=== PATIENT | female | born 1995 | race Caucasian/White ===

== ENCOUNTER 2017-12-07 15:34 | Emergency (ER) | payer MEDICAID, SELFPAY ==
[2017-12-07 15:56] VITALS: BP 119/55; PULSE 80; RESP 16; TEMP 36.6; O2SAT 99
--- NOTE | 2017-12-07 16:41 | ED.GENADUL_ITS ---
Discharge Plan Disposition Patient Disposition: HOME Condition: Good Discharge Details Chief Complaint: Sorethroat Clinical Impression: Acute pharyngitis Primary Care Provider: MIGUEL ANGELLOCAL ED Provider: Moreno Thompson Home Meds and New Rx's Prescriptions: No Action medroxyprogesterone 150 MG/ML suspension 1 ea IM DIRECTED RF: 0 Discharge Instructions Instructions: Pharyngitis (ED) Additional Instructions: She may continue to take [id number] cough and cold medication as needed for your symptoms. Feel free to return for any new or significant worsening of your condition otherwise follow-up with your primary care provider if not improving over the next week. Stand Alone Forms: Work Release Referrals: Primary Care Provider [Outside] (As needed for reassessment or if not improving in the next week) Discharge Data Discharge Date/Time-TO BE ENTERED AT DEPARTURE: 12/07/17 17:30 Medical Decision Making 21-year-old female presenting to the emergency department for chief complaint of sore throat. Patient reports that this began yesterday and she has had multiple contacts with coworkers who have had positive strep pharyngitis. She states that she has had nasal congestion, subjective fever and chills. Physical exam shows very mild erythema and hypertrophy of the tonsils with minimal exudates. RN initiated rapid strep testing which is negative. Patient encouraged to continue to use [id number] medications and to return for any emergent new or worsening symptoms otherwise follow-up with primary care as needed for reassessment or if not improving over the next week. Patient has no evidence of [place]'s angina, peritonsillar or retropharyngeal abscess, epiglottitis, or other emergent airway findings. After discussion of diagnosis and plan of care patient has no further needs, questions, or concerns and states clear understanding to return to the emergency department for any worsening symptoms. Lab Data Lab results reviewed: Yes I reviewed the patient's lab results. HPI General Date/Time Provider Initiated Documentation: 12/07/17 16:04 . Limitations to Documentation: no limitations . Information obtained by: patient and RN notes reviewed . History of Present Illness 21 year old F presents to the emergency department with the chief complaint of sore throat, described as moderate, with intensity rated at 7. Quality is described as aching, and is localized to the neck (sore throat). Patient started experiencing this day(s) (1) and it has been constant. No relieving factors improve symptom(s), No exacerbating factors reported . Patient did receive the following treatments prior to arrival, other (acetaminophen) Related Data Home Medications Medication Instructions Recorded Confirmed medroxyprogesterone 1 ea IM DIRECTED 06/03/15 12/07/17 Allergies Allergy/AdvReac Type Severity Reaction Status Date / Time Penicillins AdvReac Intermediate Swelling/Ed Unverified 12/07/17 18:13 indra General Stated Complaint: Sorethroat PHUONG: 4 Review of Systems Constitutional Reports chills, Reports fever(s) and Reports headache(s) ENT Reports headache(s), Reports nasal congestion, Reports post nasal drip and Reports sore throat Cardiovascular Denies chest pain Respiratory Denies cough and Denies pain with cough Gastrointestinal Reports nausea and Denies vomiting Musculoskeletal Reports myalgias Neurologic Reports headache(s) PFSH Social History Smoking/Tobacco Use Status: Never Exam Const General: cooperative, healthy appearing, comfortable, no acute distress and not ill appearing Nutritional Appearance: average body habitus Orientation: alert, awake and oriented x3 Limitations: mental status not altered [facility] Head: normal to inspection, normocephalic and atraumatic Ears: hearing grossly normal bilaterally, external ears normal and TM's normal bilaterally General nose exam: external nose normal Mouth: oral mucosae normal, lip normal and tongue normal Throat: abnormal tonsil bilaterally erythema (mild), exudates (mild) and hypertrophy 1+ Neck Neck: normal visual inspection, full ROM, no lymphadenopathy, no meningeal signs , trachea midline and supple Resp Effort & Inspection: normal respiratory effort and able to speak in complete sentences Auscultation: clear to auscultation bilaterally Cardio Rate: regular rate Rhythm: regular rhythm Heart Sounds: S1 normal and S2 normal Course Vital Signs Temperature 36.6 C 12/07/17 15:56 Pulse 80 12/07/17 15:56 Respiratory Rate 16 12/07/17 15:56 Blood Pressure 119/55 L 12/07/17 15:56 Pulse Oximetry 99 12/07/17 15:56 Temperature 36.6 C 12/07/17 15:56 Temperature Source Skin 12/07/17 15:56 Pulse 80 12/07/17 15:56 Respiratory Rate 16 12/07/17 15:56 Blood Pressure 119/55 L 12/07/17 15:56 Blood Pressure Position Sitting 12/07/17 15:56 Pulse Oximetry 99 12/07/17 15:56 Oxygen Delivery Method Room Air 12/07/17 15:56 Oxygen Flow Rate 0 12/07/17 15:56 Lab/Test Results Lab/Test Results: 12/07/17 16:00 Pharynx Streptococcus Screen (TISH) - Pending POC Strep Test-ELVIRA(Rapid) Start: 12/07/17 16: 01 Freq: Status: Active Protocol: Document 12/07/17 16:11 CT (Rec: 12/07/17 16:11 CT [id number]) Strep test-ELVIRA(Rapid)-POC POC-Strep test-ELVIRA (Rapid) Negative POC-Strep test-ELVIRA (Rapid) Negative
== END 2017-12-07 17:30 | disposition home or self-care (01) ==
PROVIDERS: Emergency Provider Nurse Practitioner Family
DX: J02.9 Acute pharyngitis, unspecified (principal)
CPT/HCPCS: 87880; 99282; 87081

== ENCOUNTER 2018-03-15 17:45 | Emergency (ER) | payer SELFPAY ==
[2018-03-15 17:59] VITALS: BP 130/96; PULSE 56; RESP 16; TEMP 36.6
--- NOTE | 2018-03-15 18:19 | DI.RAD_ITS ---
SYMPTOMS/DIAGNOSIS: COUGH FOR 2 WEEKS PA AND LATERAL CHEST: The cardiac and mediastinal contours have a normal appearance. The lungs are well inflated and clear. No infiltrate, effusion or pneumothorax is seen. IMPRESSION: Negative chest x-ray.
--- NOTE | 2018-03-15 19:20 | DI.VRAD_ITS ---
EXAM: XR Chest, 2 Views EXAM DATE/TIME: 03/15/2018 6:20 PM CLINICAL HISTORY: 22 years old, female; Signs and symptoms; Cough; Patient HX: Cough for 2 weeks; Per PT: Coughing up green phlegm TECHNIQUE: XR of the chest, 2 views. COMPARISON: No relevant prior studies available. FINDINGS: The lungs are hyperexpanded. No airspace consolidation, pleural effusion or pneumothorax. The cardiomediastinal silhouette is unremarkable. IMPRESSION: No acute findings. Dictated and Authenticated by: Tye Bolden MD. Ordering:PIPPA Barragan MD
--- NOTE | 2018-03-15 19:59 | W.ED.GENAD ---
Discharge Plan Disposition Patient Disposition: HOME Condition: Good Discharge Details Chief Complaint: RespSymp Clinical Impression: Cough Reason For Visit: brief SOB / pain in chest Primary Care Provider: Lo,Local ED Provider: Yung Harris Home Meds and New Rx's Prescriptions: New benzonatate [Tessalon Perles] 100 mg capsule 100 mg PO QID PRN (Reason: cough) Qty: 20 RF: 0 No Action medroxyprogesterone 150 MG/ML suspension 1 ea IM DIRECTED RF: 0 Discharge Instructions Instructions: Acute Cough (ED) Additional Instructions: Please take the medication as directed. Please take Tylenol or Motrin for any pain you may have. If you notice any worsening of your symptoms, or any new symptoms such as vomiting, diarrhea, fever, chills, shortness of breath, chest pain, numbness, weakness, or fainting , please return immediately to the emergency department for reevaluation. Please follow up with your primary care provider as soon as possible for reassessment and reevaluation. As always, it was a pleasure participating in your medical care today. Medical Decision Making This is a very pleasant 22-year-old female who presents for evaluation of a brief episode of chest pain after she had a prolonged coughing episode. She has had a mild cough for the last 2 weeks. It is been slightly improving. She has no associated fever or chills. She has no significant risk factors for pulmonary embolism. Physical exam demonstrates no lung sound abnormalities, reassuring vital signs with no evidence of hypoxemia or tachypnea. No signs of trauma on the chest. EKG shows no abnormalities, ST changes or signs of pericarditis. Chest x-ray shows no acute process. With a benign EKG, negative chest x-ray, reassuring physical exam and reassuring vital signs I feel that her symptoms are most likely from mild upper respiratory infection/bronchitis, and unlikely to be pneumonia with no clinical or radiographic evidence of it. I feel her mild pain may have been from a mild intercostal sprain during her coughing episode. After x-ray and EKG I did discuss further potential workup, and the patient states that she feels excellent would like to go home. Patient will be discharged home with close follow-up with her primary care provider. We discussed red flags for which to return. We will prescribe Tessalon Perles for improvement of her coughing. I have extensively reviewed the treatment plan and discharge instructions with the patient. I have addressed all patient concerns at this time. The patient was made aware of what symptoms to monitor for that would warrant a return to the emergency department. Discussed the plan with the patient, they demonstrate verbal understanding and agreement with our assessment and plan at this time. EKG 18: 27 Rate 59, intervals normal, sinus bradycardia, no ST elevations or depressions, no T wave inversions, no concerning Q waves, no epsilon or delta wave. No evidence of pericarditis. FINDINGS: The lungs are hyperexpanded. No airspace consolidation, pleural effusion or pneumothorax. The cardiomediastinal silhouette is unremarkable. IMPRESSION: No acute findings. Dictated and Authenticated by: Tye Bolden MD. Ordering:PIPPA Barragan MD HPI General Date/Time Provider Initiated Documentation: 03/15/18 18:13. HPI Narrative: This is a pleasant 22-year-old female with no significant past medical history who presents today for evaluation of acute brief chest pain. The patient states that over the last 2 weeks she has had a mild cough with occasional productive green sputum. This is been slightly improving over the last few days however tonight and that yesterday she had a few notable episodes of coughing, with associated very mild chest pain. She feels that it was in the center of her chest, and she had some very brief shortness of breath at that time. She was concerned that she may be having a heart attack at 22 years of age and came to the ER for further evaluation. Currently the patient's chest pain is completely resolved, she does not feel short of breath, she denies any significant pleuritic chest pain, hemoptysis, fever or chills. She denies any nausea, vomiting, or current diarrhea. She denies any pertinent family history of cardiac disease. She denies any IV or illicit drug use. She denies any history of tobacco use. Denies PE risk factors such as recent long car rides, immobilization, recent surgery, prior history of DVT or PE, family history of PE or DVT, morbid obesity, and smoking, hemoptysis, history of cancer. Related Data Home Medications Medication Instructions Recorded Confirmed medroxyprogesterone 1 ea IM DIRECTED 06/03/15 12/07/17 benzonatate [Tessalon Perles] 100 mg PO QID PRN #20 cap 03/15/18 Previous Rx's Medication Instructions Recorded benzonatate [Tessalon Perles] 100 mg PO QID PRN #20 cap 03/15/18 Allergies Allergy/AdvReac Type Severity Reaction Status Date / Time Penicillins AdvReac Intermediate Swelling/Ed Unverified 03/15/18 18:03 indra General Stated Complaint: RespSymp PHUONG: 3 Review of Systems Review of Systems All systems reviewed & are unremarkable except as noted in HPI and below PFSH Social History Smoking/Tobacco Use Status: Never Exam Narrative Exam Narrative: 1.Const: Well-nourished, Well-developed, appearing stated age 2.Eyes: PERRL, no conjunctival injection, and symmetrical lids. 3.ENT: Atraumatic external nose and ears. Moist MM. Neck: Symmetric, trachea midline, No thyromegaly. 4.CVS: +S1/S2, No murmurs or gallops. Peripheral pulses 2+ and equal in all extremities. Brisk capillary refill in all extremities. 5.RESP: Unlabored respiratory effort. Clear to auscultation bilaterally. No wheezes rales or rhonchi 6.GI: Soft, Nontender/Nondistended, No hepatosplenomegaly. No guarding or rebound. 7.MSK: Normocephalic/Atraumatic, Extremities w/o deformity or ttp No cyanosis or clubbing, Normal movement of all extremities 8.Skin: Warm, Dry. No rashes or lesions. 9.Neuro: blueprint engineer II-XII grossly intact. Sensation grossly intact, no focal neurologic deficits. 10.Psych: (AAO) x3. Appropriate mood and affect Course Vital Signs Temperature 36.6 C 03/15/18 17:59 Pulse 56 L 03/15/18 17:59 Respiratory Rate 16 03/15/18 17:59 Blood Pressure 130/96 H 03/15/18 17:59 Temperature 36.6 C 03/15/18 17:59 Temperature Source Temporal Artery Scan 03/15/18 17:59 Pulse 56 L 03/15/18 17:59 Respiratory Rate 16 03/15/18 17:59 Respiratory Effort 03/15/18 18:04 Blood Pressure 130/96 H 03/15/18 17:59 Blood Pressure Position Sitting 03/15/18 17:59 Oxygen Delivery Method Room Air 03/15/18 17:59 Oxygen Flow Rate 0 03/15/18 17:59 Pain Level 4 03/15/18 17:59
== END 2018-03-15 20:17 | disposition home or self-care (01) ==
PROVIDERS: Emergency Provider Student in an Organized Health Care Education/Training Program
DX: R05 Cough (principal); R07.89 Other chest pain; R00.1 Bradycardia, unspecified
CPT/HCPCS: 93005; 99284; 71046; 93010

== ENCOUNTER 2019-03-15 09:15 | Inpatient (IN) | payer BC, SELFPAY ==
[2019-03-15] VITALS (135 sets, daily range): BP systolic 99–139; BP diastolic 44–87; PULSE 48–94; RESP 9–26; TEMP 36.3–37.2; O2SAT 96–100
--- NOTE | 2019-03-15 09:50 | ED.GENADUL_ITS ---
Discharge Plan Disposition Patient Disposition: [facility] INPATIENT Condition: Stable Discharge Details Chief Complaint: Chest Pain Clinical Impression: Chest pain, Elevated troponin Primary Care Provider: Lee Moody ED Provider: Jose Israel Home Meds and New Rx's Prescriptions: No Action medroxyprogesterone 150 MG/ML suspension 1 ea IM DIRECTED RF: 0 Medical Decision Making 23-year-old female otherwise healthy, presents to the ER for left-sided chest pain. Reports the pain is sharp and worse today beginning at 4 AM however has been present for several days and associated with she describes as the flu over the past few weeks. EKG was obtained at 9:22 AM, reveals a sinus rhythm, no obvious STEMI however there does appear to be some mild ST depression specifica lly in leads II, 3, V5., this does appear to be new when compared to previous EKG on 03-15-18. Given her left-sided chest pain, subjective shortness of breath, being on control, will initiate cardiac work-up including a chest CTA, will not obtain d-dimer as high enough suspicion for potential PE. We did discuss this very well could be viral syndrome with pleurisy in nature however certainly cannot rule out more severe etiology. Patient appears well, nontoxic. She has no additional questions or concerns and is comfortable with this plan of work-up. Upon reevaluation at approximately 11:05 AM, we discussed that her troponin was elevated however the rest of her work-up thus far has been unremarkable. CTA is still pending. At this time she appears well, nontoxic and is stable. We discussed with an elevated troponin given her symptoms, certainly cannot rule out PE with heart strain versus given her viral syndrome over the past 3 weeks, myocarditis. CTA read by radiology as negative. Otherwise healthy 23-year-old female with recent viral syndrome, now with chest pain and elevated troponin with mild EKG changes. Most likely diagnosis would be that of myocarditis but certainly cannot rule out atypical ACS, endocarditis, etc. We will get out to [facility] cardiology team for transfer to higher level of care. Patient was given a full dose of aspirin. We also added on a tickborne disease panel I spoke with Dr. Macdonald, cardiology team at [facility], informed me that they were at capacity and that they are unable to accept at this time. Hefelt as though the patient could be safely managed here at our facility I discussed the case with our hospitalist and she initially felt that the patient did require a higher level of care. I then reached out to [facility], Dr. Ball, cardiology team, and they 2 are at capacity and cannot accept an urgent case for the next 24-48 hours. This was relayed again to our hospitalist team. Dr Ruffin is now requesting that we have a formal cardiology consultation at our facility to determine whether or not our cardiology team feels as though the patient can be safely kept here at our facility. A call was placed to cardiology. I spoke with Dr. Garcia who personally evaluated the patient here in the ER. Patient at this time obviously cannot be discharged home safely and without any tertiary facilities in the region able to accept the patient, it does make the most sense to keep the patient here, outpatient cardiac MRI and or subsequent transfer if indicated can be initiated. Case once again discussed with Dr. Ruffin who is agreeable to admit the patient here. I did add on ESR and CRP at the request of Dr. Garcia Lab Data Labs: Laboratory Tests Range/Units 03/15/19 03/15/19 03/15/19 09:50 09:50 09:50 WBC (4.4-10.8) k/cumm 4.97 RBC (4.00-5.20) m/cumm 4.34 Hgb (12.0-15.5) g/dL 13.6 Hct (36.0-46.0) % 39.5 MCV (80-95) fL 91.0 MCH (27.0-33.0) pg 31.3 MCHC (32.0-36.0) g/dL 34.4 RDW (11.7-14.6) % 13.2 Plt Count (130-400) x1000/uL 257 MPV (8.0-11.0) fL 10.8 Immature Gran % % 0.2 Neutrophils % 54.9 Lymphocytes % 29.6 Monocytes % 11.1 Eosinophils % 3.2 Basophils % 1.0 Absolute Neutrophils (1.2-6.7) k/cumm 2.73 Absolute Lymphocytes (1.2-3.4) k/cumm 1.47 Absolute Monocytes (0.11-0.7) k/cumm 0.55 Absolute Eosinophils (0.0-0.7) k/cumm 0.16 Absolute Basophils (0.0-0.2) k/cumm 0.05 PT (9.3-11.0) sec 11.3 H INR (0.9-1.1) 1.1 APTT (21.0-31.4) sec 25.1 Sodium (136-145) mmol/L 140 Potassium (3.5-5.1) mmol/L 3.8 Chloride (98-107) mmol/L 105 Carbon Dioxide (21.0-32.0) mmol/L 25.8 Anion Gap (3-11) mmol/L 9.2 BUN (7-18) mg/dL 13 Creatinine (0.55-1.02) mg/dL 0.93 Estimated GFR/1.73 m2 (mL/min/1.73m2) >= 60.00 Glucose (74-106) mg/dL 89 Calcium (8.5-10.1) mg/dL 9.1 Total Bilirubin (0.2-1.0) mg/dL 0.9 AST (15-37) U/L 20 ALT (14-59) U/L 24 Alkaline Phosphatase (46-116) U/L 60 Troponin I (<0.06) ng/Ml C-Reactive Protein (0.0-0.3) mg/dL NT-Pro-B Natriuret Pep (<300) pg/mL 59 Total Protein (6.4-8.2) g/dL 7.3 Albumin (3.4-5.0) g/dL 3.9 Range/Units 03/15/19 03/15/19 03/15/19 09:50 09:50 09:52 WBC (4.4-10.8) k/cumm RBC (4.00-5.20) m/cumm Hgb (12.0-15.5) g/dL Hct (36.0-46.0) % MCV (80-95) fL MCH (27.0-33.0) pg MCHC (32.0-36.0) g/dL RDW (11.7-14.6) % Plt Count (130-400) x1000/uL MPV (8.0-11.0) fL Immature Gran % % Neutrophils % Lymphocytes % Monocytes % Eosinophils % Basophils % Absolute Neutrophils (1.2-6.7) k/cumm Absolute Lymphocytes (1.2-3.4) k/cumm Absolute Monocytes (0.11-0.7) k/cumm Absolute Eosinophils (0.0-0.7) k/cumm Absolute Basophils (0.0-0.2) k/cumm PT (9.3-11.0) sec INR (0.9-1.1) APTT (21.0-31.4) sec Sodium (136-145) mmol/L Potassium (3.5-5.1) mmol/L Chloride (98-107) mmol/L Carbon Dioxide (21.0-32.0) mmol/L Anion Gap (3-11) mmol/L BUN (7-18) mg/dL Creatinine (0.55-1.02) mg/dL Estimated GFR/1.73 m2 (mL/min/1.73m2) Glucose (74-106) mg/dL Calcium (8.5-10.1) mg/dL Total Bilirubin (0.2-1.0) mg/dL AST (15-37) U/L ALT (14-59) U/L Alkaline Phosphatase (46-116) U/L Troponin I (<0.06) ng/Ml 0.18 H* Cancelled C-Reactive Protein (0.0-0.3) mg/dL 0.93 H NT-Pro-B Natriuret Pep (<300) pg/mL Total Protein (6.4-8.2) g/dL Albumin (3.4-5.0) g/dL Range/Units 03/15/19 03/15/19 10:02 12:57 WBC (4.4-10.8) k/cumm RBC (4.00-5.20) m/cumm Hgb (12.0-15.5) g/dL Hct (36.0-46.0) % MCV (80-95) fL MCH (27.0-33.0) pg MCHC (32.0-36.0) g/dL RDW (11.7-14.6) % Plt Count (130-400) x1000/uL MPV (8.0-11.0) fL Immature Gran % % Neutrophils % Lymphocytes % Monocytes % Eosinophils % Basophils % Absolute Neutrophils (1.2-6.7) k/cumm Absolute Lymphocytes (1.2-3.4) k/cumm Absolute Monocytes (0.11-0.7) k/cumm Absolute Eosinophils (0.0-0.7) k/cumm Absolute Basophils (0.0-0.2) k/cumm PT (9.3-11.0) sec INR (0.9-1.1) APTT (21.0-31.4) sec Sodium (136-145) mmol/L Potassium (3.5-5.1) mmol/L Chloride (98-107) mmol/L Carbon Dioxide (21.0-32.0) mmol/L Anion Gap (3-11) mmol/L BUN (7-18) mg/dL Creatinine (0.55-1.02) mg/dL Estimated GFR/1.73 m2 (mL/min/1.73m2) Glucose (74-106) mg/dL Calcium (8.5-10.1) mg/dL Total Bilirubin (0.2-1.0) mg/dL AST (15-37) U/L ALT (14-59) U/L Alkaline Phosphatase (46-116) U/L Troponin I (<0.06) ng/Ml Cancelled 0.14 H* C-Reactive Protein (0.0-0.3) mg/dL NT-Pro-B Natriuret Pep (<300) pg/mL Total Protein (6.4-8.2) g/dL Albumin (3.4-5.0) g/dL HPI General Date/Time Provider Initiated Documentation: 03/15/19 09:25 . Limitations to Documentation: no limitations . Information obtained by: patient . HPI Narrative: 23-year-old female who presents to the ER today with a primary complaint of chest pain. She reports sharp left-sided pain that radiates through her chest and into her back that lasts only for a matter of few seconds and woke her from sleep around 4:00 this morning. She has had 1 additional episode later today. Her pain is associated with shortness of breath. She reports that over roughly 4 weeks ago she fell, striking the right side of her chest on a grill causing discomfort but never had this evaluated and feels as though this is getting better. She reports roughly 3 weeks ago she had what she describes as the flu. She was exposed to multiple people with pneumonia. She reports a cough that was primarily dry, eventually had clear sputum. Leivasy chest discomfort with coughing, subjective fever, runny nose, mildly sore throat. Those symptoms for the most part resolved but not completely. She is on control, has taken it for the last 3 years. Also reports that she began vaping over the past 2-3 months. Denies any alcohol or drug use. No previous history of smoking or vaping up until the past few months. Denies recent travel, pain or swelling in her legs. Related Data Home Medications Medication Instructions Recorded Confirmed medroxyprogesterone 1 ea IM DIRECTED 06/03/15 03/15/19 Allergies Allergy/AdvReac Type Severity Reaction Status Date / Time Penicillins AdvReac Intermediate Swelling/Ed Unverified 03/15/19 09:31 indra General Stated Complaint: Chest Pain PHUONG: 3 Review of Systems Constitutional Constitutional: Reports fever(s) (A couple weeks ago with her cough, none now) Eyes Eyes: Reports other visual disturbances Comments: Reports that when she felt short of breath this morning she saw black dots throughout her entire visual field ENT Ears, Nose, Mouth, and Throat: Denies dizziness Cardiovascular Cardiovascular: Reports chest pain, Denies diaphoresis, Denies syncope, Denies rapid heart rate, Denies irregular heart rhythm and Denies leg edema Respiratory Respiratory: Reports cough, Denies hemoptysis, Reports pain with cough and Denies wheezing Gastrointestinal Gastrointestinal: Denies abdominal pain, Denies nausea and Denies vomiting Comments: Reports nausea and vomiting with her viral illness a couple of weeks ago, none now Genitourinary Genitourinary: Denies dysuria Neurologic Neurologic: Denies dizziness and Denies syncope Allergic/Immunologic Allergic/Immunologic: Denies wheezing [facility] Social History Smoking/Tobacco Use Status: Current-Occasional Tobacco Type: e-cigarettes Drug use: Never Substance use type: does not use Details: States she has been using the ryan e cigarrette in the last couple of months. Do you feel safe at home: Yes Do you feel safe in your relationship?: Yes Exam Const General: cooperative, healthy appearing, comfortable and no acute distress [facility] Head: normal to inspection, normocephalic and atraumatic Mouth: moist mucous membranes Throat: posterior oropharynx normal Eyes General: appearance normal, both eyes and all related structures Conjunctivae: conjunctivae normal Sclera: sclerae normal Neck Neck: normal visual inspection, full ROM, no lymphadenopathy, no meningeal signs, trachea midline and supple Chest Chest: normal inspection of the chest and normal palpation of entire chest wall Resp Effort & Inspection: normal respiratory effort and able to speak in complete se ntences Auscultation: clear to auscultation bilaterally Cardio Rate: regular rate Rhythm: regular rhythm Pulses: radial pulses present and dorsalis pedis pulses present GI Inspection: normal to inspection Palpation: soft and nontender Back/Spine/Pelvis Thoracic/Lumbar Spine: thoracic and lumbar spine normal to inspection Skin General skin exam: no rashes or lesions noted Neuro General: alert, awake and oriented x3 Cognition: normal cognition Speech: speech normal Motor: muscle tone normal throughout Extrem General: normal to inspection, full ROM and normal capillary refill Psych Appearance: grossly normal Mental Status: mental status grossly normal Speech and Movement: speech and movement normal Course Vital Signs Vital signs: Vital Signs Temperature 36.3 C L 03/15/19 09:23 Pulse 69 03/15/19 09:23 Respiratory Rate 18 03/15/19 09:23 Blood Pressure 139/87 03/15/19 09:23 Pulse Oximetry 100 03/15/19 09:23 Temperature 36.3 C L 03/15/19 09:23 Temperature Source Skin 03/15/19 09:23 Pulse 69 03/15/19 09:23 Respiratory Rate 18 03/15/19 09:23 Respiratory Effort Non-Labored 03/15/19 09:29 Blood Pressure 139/87 03/15/19 09:23 Blood Pressure Position Sitting 03/15/19 09:23 Pulse Oximetry 100 03/15/19 09:23 Oxygen Delivery Method Room Air 03/15/19 09:23 Oxygen Flow Rate 0 03/15/19 09:23
[2019-03-15 10:20] LABS: Abs Immature Grans 0.01 k/cumm (0.0-0.09); Absolute Basophil Count 0.05 k/cumm (0.0-0.2); Absolute Eosinophil Count 0.16 k/cumm (0.0-0.7); Absolute Lymphocyte Count 1.47 k/cumm (1.2-3.4); Absolute Monocyte Count 0.55 k/cumm (0.11-0.7); Absolute Neutrophil Count 2.73 k/cumm (1.2-6.7); Eosinophils % 3.2; HCT 39.5 % (36.0-46.0); HGB 13.6 g/dL (12.0-15.5); Immature Grans % 0.2 %; Lymphocytes % 29.6; Mean Corp. HGB Concentration 34.4 g/dL (32.0-36.0); Mean Corpuscular Hemoglobin 31.3 pg (27.0-33.0); Mean Platelet Volume 10.8 fL (8.0-11.0); Monocytes % 11.1; Neutrophils % 54.9; Platelet Count 257 x1000/uL (130-400); RBC 4.34 m/cumm (4.00-5.20); RBC Distribution Width 13.2 % (11.7-14.6); White Blood Cell Count 4.97 k/cumm (4.4-10.8)
[2019-03-15 10:34] LABS: Troponin I 0.18 ng/Ml (<0.06)
[2019-03-15 10:41] LABS: INR 1.1 (0.9-1.1); PTT Activated 25.1 sec (21.0-31.4); Prothrombin Time 11.3 sec (9.3-11.0)
[2019-03-15 11:35] LABS: ALT 24 U/L (14-59); AST 20 U/L (15-37); Albumin 3.9 g/dL (3.4-5.0); Alkaline Phosphatase 60 U/L (46-116); Anion Gap 9.2 mmol/L (3-11); BUN 13 mg/dL (7-18); Bilirubin, Total 0.9 mg/dL (0.2-1.0); CO2 25.8 mmol/L (21.0-32.0); CREATININE 0.93 mg/dL (0.55-1.02); Calcium 9.1 mg/dL (8.5-10.1); Chloride 105 mmol/L (98-107); Glucose 89 mg/dL (74-106); NT-proBNP 59 pg/mL (<300); Potassium 3.8 mmol/L (3.5-5.1); Sodium 140 mmol/L (136-145); Total Protein 7.3 g/dL (6.4-8.2)
--- NOTE | 2019-03-15 11:57 | DI.CT_ITS ---
EXAM: CT CHEST PE CTA CLINICAL HISTORY: Left-sided chest pain, sob, control. TECHNIQUE: Imaging Protocol: Axial CT angiography was performed with multi-slice acquisition and mu lti-planar and/or 3D reconstructions. CONTRAST MATERIAL: Intravenous: Omnipaque 350 Contrast volume:84 mL COMPARISON: No exams were available for comparison FINDINGS: Pulmonary Arteries: No evidence of filling defect to suggest pulmonary emboli. Tracheobronchial tree: Patent where visualized. Mediastinum and Leigha: No dominant adenopathy or fluid collection. Pulmonary parenchyma: No consolidation or dominant measurable mass. No architectural distortion. Pleura: No effusion or pneumothorax. Heart: The heart is not dilated. No coronary artery calcifications are seen. Aorta: Thoracic aorta non-dilated. Upper abdomen: Unremarkable. Bones: Normal. IMPRESSION: No evidence of pulmonary embolism, thoracic aortic dissection or aneurysm. Findings were discussed with the emergency department on the date of the examination. DATA REPOSITORY: All CT scans at this facility are submitted to the National Radiology Data Registry (NRDR) Dose Index Registry (DIR) with the [employer] (ACR). RADIATION OPTIMIZATION: All CT scans at this facility use at least one of these dose optimization te chniques: automated exposure control; mA and/or kV adjustment per patient size (includes targeted exa ms where dose is matched to clinical indication); or iterative reconstruction.
[2019-03-15] MEDS: Omnipaque 350 MG/ML 100 ML BTL IJ (12:02)
[2019-03-15] MEDS: Aspirin 81 MG CHEW 324 MG CH (12:40)
[2019-03-15 13:37] LABS: Troponin I 0.14 ng/Ml (<0.06)
--- NOTE | 2019-03-15 14:53 | W.CARDCONSUL ---
Date of service: 03/15/19 Time of Service: 15:42 Assessment and Plan Assessment and plan (1) Chest pain: Status: Acute Assessment and plan: 1. Chest pain. Likely a viral myocarditis given the prodromal nature. She has an elevated troponin which has been stable on repeat. Her EKG is not suggestive of a focal ischemic event. My concern for SCAD or infartcion is low. She has been ruled out for a PE. Patient is hemodynamically stable and would thus require just supportive care at this point and monitoring for development of arrhythmia or heart failure. ?Admit for telemetry monitoring ?Echocardiogram when possible ?Recommend ESR and CRP. Viral serologies are often not helpful and thus would not recommend that. ?There is no indication for anti-inflammatory medication or anticoagulation ?The patient would likely benefit from a cardiac MRI at a tertiary care facility. Would recommend transfer when possible. ?In some cases an endomyocardial biopsy could be recommended (concern for giant cell myocarditis or lymphocytic myocarditis) but I do not think that she would benefit from this in her current state. ?Do not see an indication for a left heart cath at this point as her troponin is stable and we have a good explanation for why it is elevated. My concern for SCAD or infarction is quite low. Should she decompensate this should be reconsidered. ?The patient will need a remote monitor at discharge to monitor for arrhythmia ?The patient should refrain from heavy alcohol consumption and aggressive exercise until her inflammation has resolved. ?The patient should follow-up with me in clinic in the next month. History of Present Illness History of Present Illness Chief Complaint: chest pain Narrative: Ms. Rodriguez is a 23-year-old healthy female who presents to the emergency room with chest pain. She says she has had a viral infection for about 3 weeks that was quite severe. Over the last week she is developed intermittent chest pain that comes and goes but only lasts a few seconds. Last night she was awoken from her sleep with chest pain that lasted a few more minutes than she was used to. This change in symptoms is what brought her to the emergency room. She says she occasionally gets some shortness of breath when laying flat and has the pain on deep inspiration. Because of the viral and that she has been pretty much sedentary for the past few weeks. She denies radiation of the chest pain or chest pain that is unresolved. She does has occasional lightheadedness or dizziness when standing up from the seated position. She had not noted any swelling in her lower extremities but does think her feet have been a little bit more pale recently. Patient does not have any palpitations or feeling of her heart racing. To her knowledge she has never had any trouble with her heart in the past. Review of Systems All systems reviewed & are unremarkable except as noted in HPI and below PFSH Social History Smoking/Tobacco Use Status: Current-Occasional Tobacco Type: e-cigarettes Drug use: Never Substance use type: does not use Details: States she has been using the ryan e cigarrette in the last couple of months. Do you feel safe at home: Yes Do you feel safe in your relationship?: Yes Exam Const General: comfortable and no acute distress HENMT Head: normocephalic and atraumatic Eyes General: appearance normal, both eyes and all related structures Resp Effort & Inspection: normal respiratory effort Auscultation: clear to auscultation bilaterally Cardio Jugular venous pressure: no JVD Palpation: normal PMI Rate: regular rate Rhythm: regular rhythm Heart Sounds: S1 normal and S2 normal (No Murmurs, Rubs or Gallops) GI Palpation: soft Auscultation: normoactive bowel sounds Skin General skin exam: no rashes or lesions noted Extrem General: normal to inspection and no clubbing, cyanosis or edema Psych Appearance: grossly normal Results Last Vital Signs Temp 36.3 C L 03/15/19 09:23 Pulse 48 L 03/15/19 14:30 Resp 19 03/15/19 14:31 BP 107/64 03/15/19 14:30 Pulse Ox 98 03/15/19 14:31 Labs Result diagrams: 03/15/19 09:50 03/15/19 09:50 Labs: Laboratory Results - last 24 hr 03/15/19 03/15/19 03/15/19 09:50 09:50 09:50 WBC 4.97 RBC 4.34 Hgb 13.6 Hct 39.5 MCV 91.0 MCH 31.3 MCHC 34.4 RDW 13.2 Plt Count 257 MPV 10.8 Immature Gran % 0.2 Neutrophils % 54.9 Lymphocytes % 29.6 Monocytes % 11.1 Eosinophils % 3.2 Basophils % 1.0 Absolute Neutrophils 2.73 Absolute Lymphocytes 1.47 Absolute Monocytes 0.55 Absolute Eosinophils 0.16 Absolute Basophils 0.05 PT 11.3 H INR 1.1 APTT 25.1 Sodium 140 Potassium 3.8 Chloride 105 Carbon Dioxide 25.8 Anion Gap 9.2 BUN 13 Creatinine 0.93 Estimated GFR/1.73 m2 >= 60.00 Glucose 89 Calcium 9.1 Total Bilirubin 0.9 AST 20 ALT 24 Alkaline Phosphatase 60 Troponin I NT-Pro-B Natriuret Pep 59 Total Protein 7.3 Albumin 3.9 03/15/19 03/15/19 03/15/19 09:50 09:52 10:02 WBC RBC Hgb Hct MCV MCH MCHC RDW Plt Count MPV Immature Gran % Neutrophils % Lymphocytes % Monocytes % Eosinophils % Basophils % Absolute Neutrophils Absolute Lymphocytes Absolute Monocytes Absolute Eosinophils Absolute Basophils PT INR APTT Sodium Potassium Chloride Carbon Dioxide Anion Gap BUN Creatinine Estimated GFR/1.73 m2 Glucose Calcium Total Bilirubin AST ALT Alkaline Phosphatase Troponin I 0.18 H* Cancelled Cancelled NT-Pro-B Natriuret Pep Total Protein Albumin 03/15/19 12:57 WBC RBC Hgb Hct MCV MCH MCHC RDW Plt Count MPV Immature Gran % Neutrophils % Lymphocytes % Monocytes % Eosinophils % Basophils % Absolute Neutrophils Absolute Lymphocytes Absolute Monocytes Absolute Eosinophils Absolute Basophils PT INR APTT Sodium Potassium Chloride Carbon Dioxide Anion Gap BUN Creatinine Estimated GFR/1.73 m2 Glucose Calcium Total Bilirubin AST ALT Alkaline Phosphatase Troponin I 0.14 H* NT-Pro-B Natriuret Pep Total Protein Albumin
[2019-03-15 15:38] LABS: C-Reactive Protein 0.93 mg/dL (0.0-0.3)
[2019-03-15 16:24] LABS: ESR 8 mm/hr (0-20)
[2019-03-15 16:31] LABS: *AMPHETAMINES SCREEN URINE Negative (Negative); *BARBITURATES SCREEN URINE Negative (Negative); *BENZODIAZEPINES SCREEN URINE Negative (Negative); Cannabinoids THC Negative (Negative); Cocaine Screen,Urine Negative (Negative); METHADONE URINE SCREEN Negative (Negative); OPIATES URINE SCREEN Negative (Negative)
[2019-03-15 16:49] LABS: Tricyclic Antidepressants Negative (Negative)
--- NOTE | 2019-03-15 18:09 | W.PM.HP.N ---
Date of service: 03/15/19 Time of Service: 19:16 Assessment and Plan Assessment and plan (1) Chest pain: Status: Acute Assessment and plan: Thought to be due to viral myocarditis. At this time the patient is being monitored in the ICU with trending troponins. Obtain echo in am. Will re-attempt to transfer in am. Appreciate cardiology consult. (2) Elevated troponin: Status: Acute Assessment and plan: as above (3) DVT prophylaxis: Status: Acute Assessment and plan: Not required in a 23 year old ambulatory patient (4) Discharge planning issues: Status: Acute Assessment and plan: Full code Will re-attempt transfer in am. History of Present Illness History of Present Illness Chief Complaint: chest pain Narrative: Mr Rodriguez is a 23 year old female with no significant PMHx but who does vape who presented to [facility] today complaining of episodic L-sided sharp chest pain, lasting 5-10 seconds, which happens at rest, is accompanied by dizziness, darkened vision, and shortness of breath, with progressively increasing severity. Prior to the last couple of days, the chest pain had been mostly dull. The patient describes a 3-week long prodrome of an upper respiratory infection with a productive cough, for which she did not seek medical care due to lack of insurance. Today, however, she was so concerned about her chest pain, she did come in. Her troponin was found to be 0.18, it went down to 0.14, but now is back up at 0.16. Her EKG shows non-specific ST-T changes. She has ruled out for a PE by a negative CTA. Attempts were made to transfer the patient to [facility] and [facility], but no bed were available at either. Dr Garcia that, since the patient's troponins were stable, it would be ok to keep the patient here overnight until transfer became an option, recommended an echocardiogram in am, and checking inflammatory markers. Review of Systems Narrative: 12 systems reviewed. Pertinent positives and negatives as per HPI [facility] Medical History (Updated 03/15/19 @ 19:33 by Meryl Ruffin MD) No pertinent past medical history (Acute) Surgical History (Updated 03/15/19 @ 19:26 by Meryl Ruffin MD) No pertinent past surgical history (Acute) Family History (Updated 03/15/19 @ 19:28 by Meryl Ruffin MD) Maternal Grandfather Diabetes Other Cancer Social History (Updated 03/15/19 @ 19:29 by Meryl Ruffin MD) Smoking/Tobacco Use Status: Current-Occasional Tobacco Type: e-cigarettes Drug use: Never Substance use type: does not use Details: States she has been using the ryan e cigarrette in the last couple of months. Do you feel safe at home: Yes Do you feel safe in your relationship?: Yes Meds Home Medications and Allergies Home Medications Medication Instructions Recorded Confirmed Type medroxyprogesterone 1 ea IM DIRECTED 06/03/15 03/15/19 History Allergies Allergy/AdvReac Type Severity Reaction Status Date / Time Penicillins AdvReac Intermediate Swelling/Ed Unverified 03/15/19 09:31 indra Exam Narrative Exam Narrative: General: Extremely pleasant female, laying comfortably flat in bed, A&Ox3, not in dstress Neurological: A&Ox3, no focal deficits Psychiatric: appropriate speech pattern/content Skin: visible skin intact HEENT: Atraumatic, nomrocephalic, EOMI, MMM, clear oropharynx, no submandibular or cervical lymphadenopathy, no goiter or JVD Cardiovascular: RRR, split S2 Lungs: CTAB Gastrointestinal: soft, nontender, nondistended Genitourinary: deferred Extremities: no e/c/c BLE's Results Imaging Additional studies: CTA chest: No evidence of pulmonary embolism, thoracic aortic dissection or aneurysm. EKG: HR 78, NSR, no obvious acute ischemia Labs Result diagrams: 03/15/19 09:50 03/15/19 09:50 Labs: Laboratory Results - last 24 hr 03/15/19 03/15/19 03/15/19 09:50 09:50 09:50 WBC 4.97 RBC 4.34 Hgb 13.6 Hct 39.5 MCV 91.0 MCH 31.3 MCHC 34.4 RDW 13.2 Plt Count 257 MPV 10.8 Immature Gran % 0.2 Neutrophils % 54.9 Lymphocytes % 29.6 Monocytes % 11.1 Eosinophils % 3.2 Basophils % 1.0 Absolute Neutrophils 2.73 Absolute Lymphocytes 1.47 Absolute Monocytes 0.55 Absolute Eosinophils 0.16 Absolute Basophils 0.05 ESR PT 11.3 H INR 1.1 APTT 25.1 Sodium 140 Potassium 3.8 Chloride 105 Carbon Dioxide 25.8 Anion Gap 9.2 BUN 13 Creatinine 0.93 Estimated GFR/1.73 m2 >= 60.00 Glucose 89 Calcium 9.1 Total Bilirubin 0.9 AST 20 ALT 24 Alkaline Phosphatase 60 Troponin I C-Reactive Protein NT-Pro-B Natriuret Pep 59 Total Protein 7.3 Albumin 3.9 Urine Opiates Screen Urine Methadone Screen Ur Barbiturates Screen Ur Tricyclics Screen Ur Amphetamines Screen U Benzodiazepines Scrn Urine Cocaine Screen Ur THC Screen 03/15/19 03/15/19 03/15/19 09:50 09:50 09:52 WBC RBC Hgb Hct MCV MCH MCHC RDW Plt Count MPV Immature Gran % Neutrophils % Lymphocytes % Monocytes % Eosinophils % Basophils % Absolute Neutrophils Absolute Lymphocytes Absolute Monocytes Absolute Eosinophils Absolute Basophils ESR PT INR APTT Sodium Potassium Chloride Carbon Dioxide Anion Gap BUN Creatinine Estimated GFR/1.73 m2 Glucose Calcium Total Bilirubin AST ALT Alkaline Phosphatase Troponin I 0.18 H* Cancelled C-Reactive Protein 0.93 H NT-Pro-B Natriuret Pep Total Protein Albumin Urine Opiates Screen Urine Methadone Screen Ur Barbiturates Screen Ur Tricyclics Screen Ur Amphetamines Screen U Benzodiazepines Scrn Urine Cocaine Screen Ur THC Screen 03/15/19 03/15/19 03/15/19 10:02 12:57 15:25 WBC RBC Hgb Hct MCV MCH MCHC RDW Plt Count MPV Immature Gran % Neutrophils % Lymphocytes % Monocytes % Eosinophils % Basophils % Absolute Neutrophils Absolute Lymphocytes Absolute Monocytes Absolute Eosinophils Absolute Basophils ESR 8 PT INR APTT Sodium Potassium Chloride Carbon Dioxide Anion Gap BUN Creatinine Estimated GFR/1.73 m2 Glucose Calcium Total Bilirubin AST ALT Alkaline Phosphatase Troponin I Cancelled 0.14 H* C-Reactive Protein NT-Pro-B Natriuret Pep Total Protein Albumin Urine Opiates Screen Urine Methadone Screen Ur Barbiturates Screen Ur Tricyclics Screen Ur Amphetamines Screen U Benzodiazepines Scrn Urine Cocaine Screen Ur THC Screen 03/15/19 16:13 WBC RBC Hgb Hct MCV MCH MCHC RDW Plt Count MPV Immature Gran % Neutrophils % Lymphocytes % Monocytes % Eosinophils % Basophils % Absolute Neutrophils Absolute Lymphocytes Absolute Monocytes Absolute Eosinophils Absolute Basophils ESR PT INR APTT Sodium Potassium Chloride Carbon Dioxide Anion Gap BUN Creatinine Estimated GFR/1.73 m2 Glucose Calcium Total Bilirubin AST ALT Alkaline Phosphatase Troponin I C-Reactive Protein NT-Pro-B Natriuret Pep Total Protein Albumin Urine Opiates Screen Negative Urine Methadone Screen Negative Ur Barbiturates Screen Negative Ur Tricyclics Screen Negative Ur Amphetamines Screen Negative U Benzodiazepines Scrn Negative Urine Cocaine Screen Negative Ur THC Screen Negative Last Vital Signs Temp 36.3 C L 03/15/19 09:23 Pulse 58 L 03/15/19 16:45 Resp 21 03/15/19 16:45 BP 112/64 03/15/19 16:45 Pulse Ox 98 03/15/19 16:45
[2019-03-15 18:41] LABS: Troponin I 0.16 ng/Ml (<0.06)
[2019-03-16] VITALS (187 sets, daily range): BP systolic 98–125; BP diastolic 52–83; PULSE 41–96; RESP 12–25; TEMP 36.6–36.9; O2SAT 95–99
[2019-03-16 07:12] LABS: Abs Immature Grans 0.01 k/cumm (0.0-0.09); Absolute Basophil Count 0.03 k/cumm (0.0-0.2); Absolute Eosinophil Count 0.24 k/cumm (0.0-0.7); Absolute Lymphocyte Count 2.14 k/cumm (1.2-3.4); Absolute Monocyte Count 0.61 k/cumm (0.11-0.7); Absolute Neutrophil Count 2.41 k/cumm (1.2-6.7); Basophils % 0.6; Eosinophils % 4.4; HCT 36.8 % (36.0-46.0); HGB 12.4 g/dL (12.0-15.5); Immature Grans % 0.2 %; Lymphocytes % 39.3; Mean Corp. HGB Concentration 33.7 g/dL (32.0-36.0); Mean Corpuscular Hemoglobin 31.2 pg (27.0-33.0); Mean Corpuscular Volume 92.5 fL (80-95); Mean Platelet Volume 10.7 fL (8.0-11.0); Monocytes % 11.2; Neutrophils % 44.3; Platelet Count 240 x1000/uL (130-400); RBC 3.98 m/cumm (4.00-5.20); RBC Distribution Width 13.3 % (11.7-14.6); White Blood Cell Count 5.44 k/cumm (4.4-10.8)
[2019-03-16 07:30] LABS: Anion Gap 9.6 mmol/L (3-11); BUN 17 mg/dL (7-18); CO2 25.4 mmol/L (21.0-32.0); CREATININE 0.83 mg/dL (0.55-1.02); Calcium 8.8 mg/dL (8.5-10.1); Calculated LDL 57 mg/dL (<100); Chloride 104 mmol/L (98-107); Cholesterol 168 mg/dL (<200); Glucose 79 mg/dL (74-106); HDL Cholesterol 103 mg/dL (40-60); Magnesium 1.8 mg/dL (1.8-2.4); Potassium 3.8 mmol/L (3.5-5.1); Sodium 139 mmol/L (136-145); Triglyceride 42 mg/dL (<150)
[2019-03-16 07:40] LABS: Troponin I 0.16 ng/Ml (<0.06)
--- NOTE | 2019-03-16 08:48 | W.PM.PROGNOT ---
Subjective Subjective Interval history since last seen: Echo at 9. Overnight, HR 40's. No chest pain overnight, at 6 am - did have a dull pain. 08/18 headache. Accepting MD at [facility]: Dr Loomis. Objective Objective Clinical Data: Abnormal lab results 03/15/19 03/15/19 03/15/19 Range/Units 09:50 09:50 09:50 RBC (4.00-5.20) m/cumm PT 11.3 H (9.3-11.0) sec Troponin I 0.18 H* (<0.06) ng/Ml C-Reactive Protein 0.93 H (0.0-0.3) mg/dL 03/15/19 03/15/19 03/16/19 Range/Units 12:57 18:05 06:50 RBC (4.00-5.20) m/cumm PT (9.3-11.0) sec Troponin I 0.14 H* 0.16 H* 0.16 H* (<0.06) ng/Ml C-Reactive Protein (0.0-0.3) mg/dL 03/16/19 Range/Units 06:50 RBC 3.98 L (4.00-5.20) m/cumm PT (9.3-11.0) sec Troponin I (<0.06) ng/Ml C-Reactive Protein (0.0-0.3) mg/dL Vital Signs Temperature 37 C 03/15/19 23:30 Temperature Source Tympanic 03/15/19 23:30 Pulse 46 L 03/16/19 04:00 Pulse 42 L 03/16/19 05:00 Respiratory Rate 19 03/16/19 05:09 Respiratory Effort Non-Labored 03/16/19 02:23 Respiratory Depth Normal 03/16/19 02:23 Respiratory Pattern Normal 03/16/19 02:23 Blood Pressure 98/54 L 03/16/19 04:00 Blood Pressure Mean 64 03/16/19 04:00 Blood Pressure Position Supine 03/16/19 02:23 Pulse Oximetry 97 03/16/19 05:09 Oxygen Delivery Method Room Air 03/16/19 02:23 Oxygen Flow Rate 0 03/16/19 02:23 Pain Level 0 03/15/19 23:30 Intake & Output 03/15/19 03/15/19 03/16/19 11:59 23:59 11:59 Intake Total 787 / 787 Output Total 125 / 125 100 / 100 Balance 662 / 662 -100 / -100 Weight 56.699 kg 55.5 kg 56.2 kg Intake: Oral 787 / 787 Output: Urine 125 / 125 100 / 100 Other: Urine Color Pale Yellow Yellow Urine Appearance Clear Clear Urine Odor None None Comment voided in commode without difficulty Pt has not voided yet this shift. Voiding Methods Bedside Commode Urinal Laboratory Results WBC 5.44 k/cumm (4.4-10.8) 03/16/19 06:50 RBC 3.98 m/cumm (4.00-5.20) L 03/16/19 06:50 Hgb 12.4 g/dL (12.0-15.5) 03/16/19 06:50 Hct 36.8 % (36.0-46.0) 03/16/19 06:50 MCV 92.5 fL (80-95) 03/16/19 06:50 MCH 31.2 pg (27.0-33.0) 03/16/19 06:50 MCHC 33.7 g/dL (32.0-36.0) 03/16/19 06:50 RDW 13.3 % (11.7-14.6) 03/16/19 06:50 Plt Count 240 x1000/uL (130-400) 03/16/19 06:50 MPV 10.7 fL (8.0-11.0) 03/16/19 06:50 Immature Gran % 0.2 % 03/16/19 06:50 Neutrophils % 44.3 03/16/19 06:50 Lymphocytes % 39.3 03/16/19 06:50 Monocytes % 11.2 03/16/19 06:50 Eosinophils % 4.4 03/16/19 06:50 Basophils % 0.6 03/16/19 06:50 Absolute Neutrophils 2.41 k/cumm (1.2-6.7) 03/16/19 06:50 Absolute Lymphocytes 2.14 k/cumm (1.2-3.4) 03/16/19 06:50 Absolute Monocytes 0.61 k/cumm (0.11-0.7) 03/16/19 06:50 Absolute Eosinophils 0.24 k/cumm (0.0-0.7) 03/16/19 06:50 Absolute Basophils 0.03 k/cumm (0.0-0.2) 03/16/19 06:50 ESR 8 mm/hr (0-20) 03/15/19 15:25 PT 11.3 sec (9.3-11.0) H 03/15/19 09:50 INR 1.1 (0.9-1.1) 03/15/19 09:50 APTT 25.1 sec (21.0-31.4) 03/15/19 09:50 Sodium 139 mmol/L (136-145) 03/16/19 06:50 Potassium 3.8 mmol/L (3.5-5.1) 03/16/19 06:50 Chloride 104 mmol/L (98-107) 03/16/19 06:50 Carbon Dioxide 25.4 mmol/L (21.0-32.0) 03/16/19 06:50 Anion Gap 9.6 mmol/L (3-11) 03/16/19 06:50 BUN 17 mg/dL (7-18) 03/16/19 06:50 Creatinine 0.83 mg/dL (0.55-1.02) 03/16/19 06:50 Estimated GFR/1.73 m2 >= 60.00 (mL/min/1.73m2) 03/16/19 06:50 Glucose 79 mg/dL (74-106) 03/16/19 06:50 Calcium 8.8 mg/dL (8.5-10.1) 03/16/19 06:50 Magnesium 1.8 mg/dL (1.8-2.4) 03/16/19 06:50 Total Bilirubin 0.9 mg/dL (0.2-1.0) 03/15/19 09:50 AST 20 U/L (15-37) 03/15/19 09:50 ALT 24 U/L (14-59) 03/15/19 09:50 Alkaline Phosphatase 60 U/L (46-116) 03/15/19 09:50 Troponin I 0.16 ng/Ml (<0.06) H* 03/16/19 06:50 C-Reactive Protein 0.93 mg/dL (0.0-0.3) H 02/04/20 09:50 NT-Pro-B Natriuret Pep 59 pg/mL (<300) 03/15/19 09:50 Total Protein 7.3 g/dL (6.4-8.2) 03/15/19 09:50 Albumin 3.9 g/dL (3.4-5.0) 03/15/19 09:50 Triglycerides 42 mg/dL (<150) 03/16/19 06:50 Total Cholesterol 168 mg/dL (<200) 03/16/19 06:50 LDL Cholesterol, Calc 57 mg/dL (<100) 03/16/19 06:50 HDL Cholesterol 103 mg/dL (40-60) 03/16/19 06:50 Urine Opiates Screen Negative (Negative) 03/15/19 16:13 Urine Methadone Screen Negative (Negative) 03/15/19 16:13 Ur Barbiturates Screen Negative (Negative) 03/15/19 16:13 Ur Tricyclics Screen Negative (Negative) 03/15/19 16:13 Ur Amphetamines Screen Negative (Negative) 03/15/19 16:13 U Benzodiazepines Scrn Negative (Negative) 03/15/19 16:13 Urine Cocaine Screen Negative (Negative) 03/15/19 16:13 Ur THC Screen Negative (Negative) 03/15/19 16:13
--- NOTE | 2019-03-16 09:55 | PDOC.CMIN ---
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 CURRENT FUNCTIONAL STATUS:: Bonita is alert and engaged with CM. She states she worked with a lot of people that were ill over the past couple of weeks and feels that she picked up their illness. She came to the ER after concerns about chest pain. Bonita states she is worried that if she is not discharged today she will be unable to complete her class for graduate school. She is talked to her instructor and cannot make up this class. Anticipate she will be transferred to [facility] related to cardiac symptoms. ADVANCE DIRECTIVES:: None on file-CM offered to provide forms and assist with completion Has patient been provided with information about the portal?: Yes Did the patient sign up for the portal?: No CODE STATUS:: Full Code INSURANCE COVERAGE / FINANCIAL ISSUES:: [employer] CURRENT HOME/COMMUNITY SERVICES/EQUIPMENT:: None PRIMARY CARE PHYSICIAN:: Lee Moody POTENTIAL DISCHARGE NEEDS:: Patient to be transferred to [facility] PATIENT/FAMILY EDUCATION NEEDS:: Education related to disposition ANTICIPATED BARRIERS TO DISCHARGE:: Accepting facility bed availability TRANSPORTATION:: Via ambulance PLAN:: Patient be discharged to [facility] for higher level of care. CM to continue to provide support.
[2019-03-16 10:45] LABS: Lyme Ab w Rflx to Lyme Confirm Negative (Negative)
--- NOTE | 2019-03-16 12:11 | W.PM.DS.N ---
Date of service: 03/16/19 Time of Service: 12:11 DS: Diagnosis Discharge Diagnosis (1) Myocarditis: Status: Suspected (2) Chest pain: Status: Acute (3) Elevated troponin: Status: Acute (4) Current nicotine vaping on some days: Status: Acute Discharge Plan Disposition Patient Disposition: [facility] [employer] Condition: Stable Discharge Details Chief Complaint: Chest Pain Clinical Impression: Chest pain, Elevated troponin Reason For Visit: ELEVATED TROPONIN, SUSPECTED MYOCARDITIS Admit Date/Time: 03/15/19 15:42 Admit Provider: Meryl Ruffin Attending Provider: Meryl Ruffin Primary Care Provider: Lee Moody ED Provider: Jose Israel Hospital Course Hospital Course: Ms Rodriguez is a 23 year old female with no significant PMHx other than h/o vaping twice a day, who was admitted to [facility] ICU under the hospitalist service while awaiting a bed on [facility] cardiology service for suspected myocarditis on 03/15/2019. The patient reports episodic (5-10 second) sharp left-sided chest pain and a 3 week prodrome of an upper respiratory infection. The chest pain is accompanied by dizziness, sensation of darkened vision, and shortness of breath. Her troponin was elevated to 0.18 on presentation, decreasing to 0.14, then increasing again to 0.16, which is where it has remained. Her EKG does not show acute ischemic changes. She ruled out for a PE by CTA. Her ESR is wnl, her CRP is 0.93 (cut of for normal is 0.3). She has been afebrile. She was evaluated by Dr Garcia, who felt that the patient's symptoms and clinical picture are consistent with viral myocarditis. Her echocardiogram done today shows EF of 60-65%, normal LV size and wall thickness, preserved RV function, mild mitral and tricuspid regurgitation was seen. RSVP was 20.6 mmHg. The patient will require an inpatient cardiac MRI as well as a probably L cardiac cath, services unavailable at [facility]. She was accepted in transfer by Dr Loomis of [facility] cardiology, pending bed availability.The patient still has chest tightness and did have an episode of chest pain this morning. Her heart rates were in the 40s while asleep, in the 60's while awake. She is hemodynamically stable for transfer and agrees to transfer. Her one concern is missing an important lab in one of her classes that could preclude her getting in to the vet school where she was already pre-accepted, which are care managers are trying to address. Of note, the patient was advised to stop using vaping products, could benefit from outpatient PFT. There is low suspicion for her having EVALI at this time. Care for patient as well as completion of her transfer summary took 1 hour on the day of transfer. Home Meds and New Rx's Prescriptions: No Action medroxyprogesterone 150 MG/ML suspension 1 ea IM DIRECTED RF: 0 Discharge Instructions Additional Instructions: Stop using vaping products! Follow up with Dr Garcia within 1 month. Referrals: Bienvenido Garcia MD [MD CONSULTING PHYSICIAN] - Activity:: OOB to chair Diet:: heart healthy Discharge Orders Discharge Orders: Discharge Order (Routine); Ordered 03/16/19 Ordered By: Meryl Ruffin DS: Summary Status at Discharge Functional status at discharge: independent ambulation Overall status at discharge: patient is not back to baseline Mental Status: mental status grossly normal Speech and Movement: speech and movement normal Mood: congruent mood Affect: normal affect Exam Narrative Exam Narrative: General: Extremely pleasant female, tearful when talking about missing her lab (disseting a cat), A&Ox3 HEENT: EOMI, MMM Cardiovascular: RRR, split S2 Lungs: CTAB Gastrointestinal: soft, nontender, nondistended Extremities: no e/c/c BLE's Psych Mental Status: mental status grossly normal Speech and Movement: speech and movement normal Mood: congruent mood Affect: normal affect DS: Data Vitals/I&O Vitals and I&O: Vital Signs Temperature 36.9 C 03/16/19 09:15 Temperature Source Temporal Artery Scan 03/16/19 09:15 Pulse 50 L 03/16/19 08:00 Pulse 49 L 03/16/19 08:00 Respiratory Rate 14 03/16/19 09:15 Respiratory Effort Non-Labored 03/16/19 09:15 Respiratory Depth Normal 03/16/19 09:15 Respiratory Pattern Normal 03/16/19 09:15 Blood Pressure 106/65 03/16/19 08:00 Blood Pressure Mean 74 03/16/19 08:00 Blood Pressure Position Supine 03/16/19 09:15 Pulse Oximetry 99 03/16/19 09:15 Oxygen Delivery Method Room Air 03/16/19 09:15 Oxygen Flow Rate 0 03/16/19 09:15 Pain Level 7 03/16/19 09:15 Intake & Output 03/15/19 03/16/19 03/16/19 23:59 11:59 23:59 Intake Total 787 / 787 Output Total 125 / 125 100 / 100 Balance 662 / 662 -100 / -100 Weight 55.5 kg 56.2 kg Intake: Oral 787 / 787 Output: Urine 125 / 125 100 / 100 Other: Urine Color Pale Yellow Yellow Urine Appearance Clear Clear Urine Odor None None Comment voided in commode without difficulty Pt voided in under sink toilet; urine only; educated on commode use/hat for future voids. Voiding Methods Bedside Commode Toilet Data Completed and Pending Labs on day of discharge: Labs from last 24 hours 03/16/19 03/16/19 03/16/19 12:00 06:50 06:50 WBC 5.44 RBC 3.98 L Hgb 12.4 Hct 36.8 MCV 92.5 MCH 31.2 MCHC 33.7 RDW 13.3 Plt Count 240 MPV 10.7 Immature Gran % 0.2 Neutrophils % 44.3 Lymphocytes % 39.3 Monocytes % 11.2 Eosinophils % 4.4 Basophils % 0.6 Absolute Neutrophils 2.41 Absolute Lymphocytes 2.14 Absolute Monocytes 0.61 Absolute Eosinophils 0.24 Absolute Basophils 0.03 ESR Sodium 139 Potassium 3.8 Chloride 104 Carbon Dioxide 25.4 Anion Gap 9.6 BUN 17 Creatinine 0.83 Estimated GFR/1.73 m2 >= 60.00 Glucose 79 Calcium 8.8 Magnesium 1.8 Troponin I Pending 0.16 H* C-Reactive Protein Triglycerides 42 Total Cholesterol 168 LDL Cholesterol, Calc 57 HDL Cholesterol 103 Urine Opiates Screen Urine Methadone Screen Ur Barbiturates Screen Ur Tricyclics Screen Ur Amphetamines Screen U Benzodiazepines Scrn Urine Cocaine Screen Ur THC Screen A.phagocytophil DNA PCR B. divergens/MO-1 PCR Babesia duncani (PCR) Babesia microti DNA PCR Borrelia (PCR) Lyme Disease Antibody E.chaffeensis DNA (PCR) E.ewingii/canis DNA PCR E. muris-like DNA (PCR) 03/15/19 03/15/19 03/15/19 18:05 16:13 15:25 WBC RBC Hgb Hct MCV MCH MCHC RDW Plt Count MPV Immature Gran % Neutrophils % Lymphocytes % Monocytes % Eosinophils % Basophils % Absolute Neutrophils Absolute Lymphocytes Absolute Monocytes Absolute Eosinophils Absolute Basophils ESR 8 Sodium Potassium Chloride Carbon Dioxide Anion Gap BUN Creatinine Estimated GFR/1.73 m2 Glucose Calcium Magnesium Troponin I 0.16 H* C-Reactive Protein Triglycerides Total Cholesterol LDL Cholesterol, Calc HDL Cholesterol Urine Opiates Screen Negative Urine Methadone Screen Negative Ur Barbiturates Screen Negative Ur Tricyclics Screen Negative Ur Amphetamines Screen Negative U Benzodiazepines Scrn Negative Urine Cocaine Screen Negative Ur THC Screen Negative A.phagocytophil DNA PCR B. divergens/MO-1 PCR Babesia duncani (PCR) Babesia microti DNA PCR Borrelia (PCR) Lyme Disease Antibody E.chaffeensis DNA (PCR) E.ewingii/canis DNA PCR E. muris-like DNA (PCR) 03/15/19 03/15/19 03/15/19 12:57 09:50 09:30 WBC RBC Hgb Hct MCV MCH MCHC RDW Plt Count MPV Immature Gran % Neutrophils % Lymphocytes % Monocytes % Eosinophils % Basophils % Absolute Neutrophils Absolute Lymphocytes Absolute Monocytes Absolute Eosinophils Absolute Basophils ESR Sodium Potassium Chloride Carbon Dioxide Anion Gap BUN Creatinine Estimated GFR/1.73 m2 Glucose Calcium Magnesium Troponin I 0.14 H* C-Reactive Protein 0.93 H Triglycerides Total Cholesterol LDL Cholesterol, Calc HDL Cholesterol Urine Opiates Screen Urine Methadone Screen Ur Barbiturates Screen Ur Tricyclics Screen Ur Amphetamines Screen U Benzodiazepines Scrn Urine Cocaine Screen Ur THC Screen A.phagocytophil DNA PCR Pending B. divergens/MO-1 PCR Pending Babesia duncani (PCR) Pending Babesia microti DNA PCR Pending Borrelia (PCR) Pending Lyme Disease Antibody Pending E.chaffeensis DNA (PCR) Pending E.ewingii/canis DNA PCR Pending E. muris-like DNA (PCR) Pending Echo read: see above CTA chest: No evidence of pulmonary embolism, thoracic aortic dissection or aneurysm. [facility] Medical History (Updated 03/16/19 @ 12:12 by Meryl Ruffin MD) Current nicotine vaping on some days (Acute) No pertinent past medical history (Acute) Surgical History (Updated 03/15/19 @ 19:26 by Meryl Ruffin MD) No pertinent past surgical history (Acute) Family History (Updated 03/15/19 @ 19:28 by Meryl Ruffin MD) Maternal Grandfather Diabetes Other Cancer Social History (Updated 03/15/19 @ 19:29 by Meryl Ruffin MD) Smoking/Tobacco Use Status: Current-Occasional Tobacco Type: e-cigarettes Drug use: Never Substance use type: does not use Details: States she has been using the [place] e cigarrette in the last couple of months. Do you feel safe at home: Yes Do you feel safe in your relationship?: Yes
[2019-03-16 12:58] LABS: Troponin I 0.17 ng/Ml (<0.06)
--- NOTE | 2019-03-16 14:34 | W.NUTCONSULT ---
Date of service: 03/16/19 Time of Service: 14:34 Nutritional Consult ASSESSMENT: 23 year old female admitted with possible viral myocarditis. BMI wnl. NPO currently. Anticipate transfer to [facility]. Time Spent in Nutritional Counseling and Treatment: 0 time spent face to face
[2019-03-17] VITALS (11 sets, daily range): BP systolic 120–135; BP diastolic 67–68; PULSE 47–91; RESP 16–27; TEMP 36.7–37.1; O2SAT 98–99
[2019-03-17] MEDS: Normal Saline Flush 10 ML SYR (00:31)
[2019-03-17 06:52] LABS: Abs Immature Grans 0.01 k/cumm (0.0-0.09); Absolute Basophil Count 0.03 k/cumm (0.0-0.2); Absolute Eosinophil Count 0.24 k/cumm (0.0-0.7); Absolute Lymphocyte Count 2.53 k/cumm (1.2-3.4); Absolute Monocyte Count 0.75 k/cumm (0.11-0.7); Absolute Neutrophil Count 2.69 k/cumm (1.2-6.7); Basophils % 0.5; Eosinophils % 3.8; HCT 37.6 % (36.0-46.0); HGB 12.8 g/dL (12.0-15.5); Immature Grans % 0.2 %; Lymphocytes % 40.5; Mean Corpuscular Hemoglobin 31.2 pg (27.0-33.0); Mean Corpuscular Volume 91.7 fL (80-95); Mean Platelet Volume 10.6 fL (8.0-11.0); Platelet Count 243 x1000/uL (130-400); White Blood Cell Count 6.25 k/cumm (4.4-10.8)
[2019-03-17 07:12] LABS: Anion Gap 10.8 mmol/L (3-11); BUN 16 mg/dL (7-18); CO2 26.2 mmol/L (21.0-32.0); CREATININE 0.86 mg/dL (0.55-1.02); Calcium 8.9 mg/dL (8.5-10.1); Chloride 104 mmol/L (98-107); Glucose 87 mg/dL (74-106); Magnesium 1.9 mg/dL (1.8-2.4); Potassium 3.8 mmol/L (3.5-5.1); Sodium 141 mmol/L (136-145)
[2019-03-17 07:19] LABS: Troponin I 0.15 ng/Ml (<0.06)
--- NOTE | 2019-03-17 08:29 | W.PM.PROGNOT ---
Date of Service Date of service: 03/17/19 Time of Service: 08:29 Subjective Subjective Interval history since last seen: Trop 0.15. Heart rates - sinus arrhythmia/hue - 54 this morning. Objective Objective Clinical Data: Abnormal lab results 03/16/19 03/17/19 03/17/19 Range/Units 12:17 06:15 06:15 Absolute Monocytes 0.75 H (0.11-0.7) k/cumm Troponin I 0.17 H* 0.15 H* (<0.06) ng/Ml Vital Signs Temperature 36.8 C 03/17/19 03:51 Temperature Source Temporal Artery Scan 03/17/19 03:51 Pulse 47 L 03/17/19 03:51 Pulse 50 L 03/17/19 03:00 Respiratory Rate 16 03/17/19 03:51 Respiratory Effort 03/17/19 03:51 Respiratory Depth Normal 03/17/19 03:51 Respiratory Pattern Normal 03/17/19 03:51 Blood Pressure 125/72 03/16/19 21:22 Blood Pressure Mean 83 03/16/19 21:22 Blood Pressure Position Supine 03/17/19 03:51 Pulse Oximetry 99 03/16/19 17:00 Oxygen Delivery Method Room Air 03/17/19 03:51 Oxygen Flow Rate 0 03/17/19 03:51 Pain Level 0 03/17/19 03:51 Intake & Output 03/16/19 03/16/19 03/17/19 11:59 23:59 11:59 Intake Total 840 / 840 40 / 40 Output Total 100 / 550 450 / 550 Balance -100 / 290 390 / 290 40 / 40 Weight 56.2 kg 58.2 kg Intake: IV 40 / 40 Oral 840 / 840 Output: Urine 100 / 550 450 / 550 Other: Urine Color Yellow Yellow Urine Appearance Clear Clear Urine Odor None Strong Comment Pt voided in under sink toilet; urine only; educated on commode use/hat for future voids. 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 Voiding Methods Toilet Bedside Commode Laboratory Results WBC 6.25 k/cumm (4.4-10.8) 03/17/19 06:15 RBC 4.10 m/cumm (4.00-5.20) 03/17/19 06:15 Hgb 12.8 g/dL (12.0-15.5) 03/17/19 06:15 Hct 37.6 % (36.0-46.0) 03/17/19 06:15 MCV 91.7 fL (80-95) 03/17/19 06:15 MCH 31.2 pg (27.0-33.0) 03/17/19 06:15 MCHC 34.0 g/dL (32.0-36.0) 03/17/19 06:15 RDW 13.0 % (11.7-14.6) 03/17/19 06:15 Plt Count 243 x1000/uL (130-400) 03/17/19 06:15 MPV 10.6 fL (8.0-11.0) 03/17/19 06:15 Immature Gran % 0.2 % 03/17/19 06:15 Neutrophils % 43.0 03/17/19 06:15 Lymphocytes % 40.5 03/17/19 06:15 Monocytes % 12.0 03/17/19 06:15 Eosinophils % 3.8 03/17/19 06:15 Basophils % 0.5 03/17/19 06:15 Absolute Neutrophils 2.69 k/cumm (1.2-6.7) 03/17/19 06:15 Absolute Lymphocytes 2.53 k/cumm (1.2-3.4) 03/17/19 06:15 Absolute Monocytes 0.75 k/cumm (0.11-0.7) H 03/17/19 06:15 Absolute Eosinophils 0.24 k/cumm (0.0-0.7) 03/17/19 06:15 Absolute Basophils 0.03 k/cumm (0.0-0.2) 03/17/19 06:15 ESR 8 mm/hr (0-20) 03/15/19 15:25 PT 11.3 sec (9.3-11.0) H 03/15/19 09:50 INR 1.1 (0.9-1.1) 03/15/19 09:50 APTT 25.1 sec (21.0-31.4) 03/15/19 09:50 Sodium 141 mmol/L (136-145) 03/17/19 06:15 Potassium 3.8 mmol/L (3.5-5.1) 03/17/19 06:15 Chloride 104 mmol/L (98-107) 03/17/19 06:15 Carbon Dioxide 26.2 mmol/L (21.0-32.0) 03/17/19 06:15 Anion Gap 10.8 mmol/L (3-11) 03/17/19 06:15 BUN 16 mg/dL (7-18) 03/17/19 06:15 Creatinine 0.86 mg/dL (0.55-1.02) 03/17/19 06:15 Estimated GFR/1.73 m2 >= 60.00 (mL/min/1.73m2) 03/17/19 06:15 Glucose 87 mg/dL (74-106) 03/17/19 06:15 Calcium 8.9 mg/dL (8.5-10.1) 03/17/19 06:15 Magnesium 1.9 mg/dL (1.8-2.4) 03/17/19 06:15 Total Bilirubin 0.9 mg/dL (0.2-1.0) 03/15/19 09:50 AST 20 U/L (15-37) 03/15/19 09:50 ALT 24 U/L (14-59) 03/15/19 09:50 Alkaline Phosphatase 60 U/L (46-116) 03/15/19 09:50 Troponin I 0.15 ng/Ml (<0.06) H* 03/17/19 06:15 C-Reactive Protein 0.93 mg/dL (0.0-0.3) H 03/15/19 09:50 NT-Pro-B Natriuret Pep 59 pg/mL (<300) 03/15/19 09:50 Total Protein 7.3 g/dL (6.4-8.2) 03/15/19 09:50 Albumin 3.9 g/dL (3.4-5.0) 03/15/19 09:50 Triglycerides 42 mg/dL (<150) 03/16/19 06:50 Total Cholesterol 168 mg/dL (<200) 03/16/19 06:50 LDL Cholesterol, Calc 57 mg/dL (<100) 03/16/19 06:50 HDL Cholesterol 103 mg/dL (40-60) 03/16/19 06:50 Urine Opiates Screen Negative (Negative) 03/15/19 16:13 Urine Methadone Screen Negative (Negative) 03/15/19 16:13 Ur Barbiturates Screen Negative (Negative) 03/15/19 16:13 Ur Tricyclics Screen Negative (Negative) 03/15/19 16:13 Ur Amphetamines Screen Negative (Negative) 03/15/19 16:13 U Benzodiazepines Scrn Negative (Negative) 03/15/19 16:13 Urine Cocaine Screen Negative (Negative) 03/15/19 16:13 Ur THC Screen Negative (Negative) 03/15/19 16:13 Lyme Disease Antibody Negative (Negative) 03/15/19 09:30
--- NOTE | 2019-03-17 14:28 | CHAPLAIN ---
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 She was suppose to take a major test today and is worried about that, hoping being hospitalized will be an approved excuse. She plans to go to graduate school at the [employer], [place]. She seems to be comfortable here and said she's waiting to be transferred (to [facility]) for another test.
[2019-03-17 16:08] LABS: C-Reactive Protein 0.89 mg/dL (0.0-0.3)
--- NOTE | 2019-03-17 17:08 | PDOC.CMDIS ---
- If Service Date Differs Date of service: 03/17/19 Time of Service: 17:08 LACE Index Scoring Tool - Questions: Length of Stay (in days): 2 Acuity (Admit via E.D.?): Yes E.D. Visits: 2 - Answers: Total Score: 7 Risk of Readmission: Low Risk Care Management Discharge Reason for Hospitalization: Chest pain, elevated troponin, suspected myocarditis Discharge Plan: Bonita will be discharged home with no new services. She will follow up with [facility] and her provider and discharge plan of care. Bonita will transport home with her mother via private vehicle. Patient/Family Education Needs: Discharge and follow up plans, limitations, Ask Me Three.
--- NOTE | 2019-03-17 17:26 | W.PM.DS.N ---
Date of service: 03/17/19 Time of Service: 17:26 DS: Diagnosis Discharge Diagnosis (1) Myocarditis: Status: Suspected (2) Chest pain: Status: Acute (3) Elevated troponin: Status: Acute (4) Current nicotine vaping on some days: Status: Acute Discharge Plan Disposition Patient Disposition: HOME Condition: Stable Discharge Details Chief Complaint: Chest Pain Clinical Impression: Chest pain, Elevated troponin Reason For Visit: ELEVATED TROPONIN, SUSPECTED MYOCARDITIS Admit Date/Time: 03/15/19 15:42 Admit Provider: Meryl Ruffin Attending Provider: Meryl Ruffin Primary Care Provider: Lee Moody ED Provider: Jose Israel Hospital Course Hospital Course: Ms Rodriguez is a 23 year old female with no significant PMHx other than h/o vaping twice a day, who was admitted to [facility] ICU under the hospitalist service while awaiting a bed on [facility] cardiology service for suspected myocarditis on 03/15/2019. The patient reports episodic (5-10 second) sharp left-sided chest pain and a 3 week prodrome of an upper respiratory infection. The chest pain is accompanied by dizziness, sensation of darkened vision, and shortness of breath. Her troponin was elevated to 0.18 on presentation, decreasing to 0.14, then increasing again to 0.16, which is where it has remained. Her EKG does not show acute ischemic changes. She ruled out for a PE by CTA. Her ESR is wnl, her CRP was initially 0.93 (cut of for normal is 0.3), now 0.89. She has not had any arrhythmias, her heart rate ranging from 40s to 60's, mostly in the 40's. She has been afebrile. She was evaluated by Dr Garcia, who felt that the patient's symptoms and clinical picture are consistent with viral myocarditis. Her echocardiogram shows EF of 60-65%, normal LV size and wall thickness, preserved RV function, mild mitral and tricuspid regurgitation was seen. RSVP was 20.6 mmHg. The was initially felt to require a cardiac MRI and possible a cardiac cath, for which a transfer to [facility] was arranged, and the patient was accepted there; however, no bed was available for >48 hours, and the patient, having been hemodynamically stable for 3 days, elected to go home with outpatient follow up with [facility] cardiology for a cardiac MRI. I spoke with [facility] cardiology to relay this and to attempt to schedule follow up - the patient will be contacted by the clinic once this has been arranged. The patient will go home with a cardiac event recorder as myocarditis does predispose her to arrhythmias. Of note, the patient was advised to stop using vaping products, could benefit from outpatient PFT. There is low suspicion for her having EVALI at this time. Care for patient as well as completion of her discharge summary took 1 hour to complete on day of discharge. Home Meds and New Rx's Prescriptions: Continued medroxyprogesterone 150 MG/ML suspension 1 ea IM DIRECTED RF: 0 Discharge Instructions Instructions: Myocarditis (DC), Magnetic Resonance Imaging (DC) Additional Instructions: Stop using vaping products! Follow up with [facility] - they will contact you to arrange the cardiac MRI. Follow up with Dr Garcia within 1 month. Referrals: CARDIOLOGY,[facility] [OTHER] - (suspected viral myocarditis. needs a cardiac MRI) Lee Moody [Primary Care Provider] - Bienvenido Garcia MD [ CONSULTING PHYSICIAN] - Activity:: No exercise/strenuous activity until cleared by Equipment/Supplies:: cardiac event recorder Diet:: heart healthy Discharge Orders Discharge Orders: Discharge Order (Routine); Ordered 03/16/19 Ordered By: Meryl Ruffin Other Ambulatory Orders: Cardiac Event Recorder (Outpt) (ONCE) Timeframe: [id number] Facility: [facility] - Location: Respiratory Therapy Ordered By: Meryl Ruffin DS: Summary Status at Discharge Functional status at discharge: independent ambulation Overall status at discharge: patient is progressing back to baseline Mental Status: mental status grossly normal Speech and Movement: speech and movement normal Mood: congruent mood Affect: normal affect Exam Narrative Exam Narrative: General: Very pleasant female, A&Ox3, NAD HEENT: EOMI, MMM Heart: RRR, split S2 Lungs: CTAB Abdomen: soft, nontender, nondistended Extremities: no e/c/c BLE's Psych Mental Status: mental status grossly normal Speech and Movement: speech and movement normal Mood: congruent mood Affect: normal affect DS: Data Vitals/I&O Vitals and I&O: Vital Signs Temperature 37.1 C 03/17/19 11:14 Temperature Source Temporal Artery Scan 03/17/19 11:14 Pulse 64 03/17/19 08:18 Pulse 91 H 03/17/19 08:18 Respiratory Rate 24 03/17/19 08:18 Respiratory Effort Non-Labored 03/17/19 11:14 Respiratory Depth Normal 03/17/19 11:14 Respiratory Pattern Normal 03/17/19 11:14 Blood Pressure 120/68 03/17/19 08:18 Blood Pressure Mean 82 03/17/19 08:18 Blood Pressure Position Supine 03/17/19 11:14 Pulse Oximetry 99 03/17/19 11:45 Oxygen Delivery Method Room Air 03/17/19 11:45 Oxygen Flow Rate 0 03/17/19 11:45 Pain Level 0 03/17/19 11:14 Intake & Output 03/16/19 03/17/19 03/17/19 23:59 11:59 23:59 Intake Total 840 / 840 280 / 520 240 / 520 Output Total 450 / 550 Balance 390 / 290 280 / 520 240 / 520 Weight 58.2 kg Intake: IV 40 / 40 Oral 840 / 840 240 / 480 240 / 480 Output: Urine 450 / 550 Other: Urine Color Yellow Urine Appearance Clear 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 Voiding Methods Bedside Commode Data Completed and Pending Completed studies during hospitalization [Text1]: CTA chest: No evidence of pulmonary embolism, thoracic aortic dissection or aneurysm Echo read: see above Labs on day of discharge: Labs from last 24 hours 03/17/19 03/17/19 06:15 06:15 WBC 6.25 RBC 4.10 Hgb 12.8 Hct 37.6 MCV 91.7 MCH 31.2 MCHC 34.0 RDW 13.0 Plt Count 243 MPV 10.6 Immature Gran % 0.2 Neutrophils % 43.0 Lymphocytes % 40.5 Monocytes % 12.0 Eosinophils % 3.8 Basophils % 0.5 Absolute Neutrophils 2.69 Absolute Lymphocytes 2.53 Absolute Monocytes 0.75 H Absolute Eosinophils 0.24 Absolute Basophils 0.03 Sodium 141 Potassium 3.8 Chloride 104 Carbon Dioxide 26.2 Anion Gap 10.8 BUN 16 Creatinine 0.86 Estimated GFR/1.73 m2 >= 60.00 Glucose 87 Calcium 8.9 Magnesium 1.9 Troponin I 0.15 H* C-Reactive Protein 0.89 H [facility] Medical History (Updated 03/16/19 @ 12:12 by Meryl Ruffin MD) Current nicotine vaping on some days (Acute) No pertinent past medical history (Acute) Surgical History (Updated 03/15/19 @ 19:26 by Meryl Ruffin MD) No pertinent past surgical history (Acute) Family History (Updated 03/15/19 @ 19:28 by Meryl Ruffin MD) Maternal Grandfather Diabetes Other Cancer Social History (Updated 03/15/19 @ 19:29 by Meryl Ruffin MD) Smoking/Tobacco Use Status: Current-Occasional Tobacco Type: e-cigarettes Drug use: Never Substance use type: does not use Details: States she has been using the ryan e cigarrette in the last couple of months. Do you feel safe at home: Yes Do you feel safe in your relationship?: Yes
[2019-03-17 17:53] LABS: Anaplasma phagocytophilum Negative (Negative); B. miyamotoi PCR Negative (Negative); Babesia divergens/MO-1 Negative (Negative); Babesia duncani Negative (Negative); Babesia microti Negative (Negative); Ehrlichia chaffeensis Negative (Negative); Ehrlichia ewingii/canis Negative (Negative); Ehrlichia muris eauclairensis Negative (Negative)
== END 2019-03-17 18:35 | disposition home or self-care (01) | DRG 316 ==
LOC: ER 16:11 → ICU 17:08
PROVIDERS: Admitting Provider Internal Medicine; Emergency Provider Physician Assistant; PCP Family Medicine; Visit Provider Internal Medicine
DX: I40.0 Infective myocarditis (principal); R07.9 Chest pain, unspecified; R79.89 Other specified abnormal findings of blood chemistry; I08.1 Rheumatic disorders of both mitral and tricuspid valves; F17.290 Nicotine dependence, other tobacco product, uncomplicated
CPT/HCPCS: 36410; 36415; 71275; 80048; 80053; 80061; 80307; 81025; 85652; 87449; 87798; 93005; 99222; 99239; 99254; 99285; 83735; 83880; 84484; 85025; 85610; 85730; 86140; 86618; 93010; 93225; 93306; J3490

== ENCOUNTER 2019-03-28 12:47 | Outpatient (CLI) | payer BC, SELFPAY ==
--- NOTE | 2019-03-28 13:31 | W.HOLTRPT ---
Date of service: 03/28/19 Time of Service: 13:31 Holter Monitor Report Holter Monitor Note: The patient was monitored for 50 hours Rhythm throughout was sinus. Average heart rate was 93 bpm. Minimum heart rate was 48 bpm and maximum heart rate 167 bpm There were very rare atrial and ventricular ectopic beats.(12 ventricular and 6 atrial premature beats in 50 hours) Symptoms of dizziness chest pain and shortness of breath did not correspond to any dysrhythmia
== END 2019-03-28 13:07 ==
PROVIDERS: PCP Family Medicine; Visit Provider Family Medicine
DX: R07.9 Chest pain, unspecified (principal); R55 Syncope and collapse
CPT/HCPCS: 93226

== ENCOUNTER 2020-06-28 01:48 | Outpatient (CLI) | payer BC, SELFPAY ==
--- NOTE | 2020-06-28 | DI.RAD_ITS ---
Exam(s) XR LUMBAR SPINE COMPLETE EXAM: XR LUMBAR SPINE COMPLETE CLINICAL HISTORY: CHRONIC LBP, M54.5. TECHNIQUE: 2D digital imaging was performed. COMPARISON: CT CT CHEST PE CTA from 03/15/2019 FINDINGS: No evidence of fracture, listhesis, or pars interarticularis defects. All the disc spaces exhibit no rmal height. Facet joints appear unremarkable as do the sacroiliac joints. No osseous lesions. No scoliosis. Bone density normal. IMPRESSION: No significant radiograph findings. DATA REPOSITORY: RADIATION DOSE DELIVERED:
== END 2020-06-28 02:08 ==
PROVIDERS: PCP Family Medicine; Visit Provider Physician Assistant
DX: M54.5 Low back pain (principal)
CPT/HCPCS: 72110